=== PATIENT | female | born 1970 | race Asian ===

== ENCOUNTER 2016-06-23 06:55 | Inpatient (IN) | payer OTHER ==
[2016-06-21 15:46] LABS: BASOPHILS % (AUTO) 0.8 % (0.0-2.0); EOSINOPHILS # (AUTO) 0.1 K/uL (0.0-0.4); EOSINOPHILS % (AUTO) 2.1 % (0.0-4.0); HEMOGLOBIN 13.2 g/dL (12.0-16.0); LYMPHOCYTES # (AUTO) 1.3 K/uL (1.0-5.5); LYMPHOCYTES % (AUTO) 26.5 % (20.5-51.5); MEAN CORPUSCULAR HEMOGLOBIN 30 pg (27-31); MEAN CORPUSCULAR HGB CONC 33 % (32-36); MEAN CORPUSCULAR VOLUME 91 fL (79.0-98.0); MONOCYTES # (AUTO) 0.2 K/uL (0.0-1.0); MONOCYTES % (AUTO) 4.8 % (1.7-9.3); NEUTROPHILS # (AUTO) 3.4 K/uL (1.8-7.7); NEUTROPHILS % (AUTO) 65.8 % (40.0-70.0); PLATELET COUNT (AUTO) 259 K/uL (130-430); RED CELL DISTRIBUTION WIDTH 12.4 % (9.0-15.0)
[2016-06-21 15:53] LABS: BILIRUBIN,URINE NEGATIVE (NEGATIVE); BLOOD, URINE NEGATIVE (NEGATIVE); CLARITY/URINE CLEAR (CLEAR); COLOR,URINE YELLOW (YELLOW); GLUCOSE,URINE NEGATIVE (NEGATIVE); KETONES,URINE NEGATIVE (NEGATIVE); LEUKOCYTE ESTERASE ,URINE NEGATIVE (NEGATIVE); NITRITE, URINE NEGATIVE (NEGATIVE); PROTEIN URINE NEGATIVE (NEGATIVE); UROBILINOGEN,URINE 0.2 (0.2-1.0)
[~2016-06-23] VITALS: Ht 162.6 cm; Wt 64.0 kg
--- NOTE | 2016-06-23 02:34 | NUR ---
SAT AND DANGLE FEET PT SAT AND DANGLE LEGS IN THE BED WHILE BREATHING IS ORDERED. TOLERATED WELL, NO S/S OF ANY PAIN OR DISTRESS NOTED. WENT BACK TO LAY DOWN. WILL CONT TO MONITOR. Addendum: 06/24/16 at 0537 by Erlin Patel RN INCORRECT TIME PLS DISREGARD NOTES
[2016-06-23] MEDS ORDERED: NORE0.3513 PO (07:29)
[2016-06-23] MEDS ORDERED: METOCLOPRAMIDE HCL 10 MG/2 ML VIAL IVP ONE (08:57)
[2016-06-23] MEDS ORDERED: GLYCOPYRROLATE 0.2 MG/ML VIAL IJ ONE (08:57)
[2016-06-23] MEDS ORDERED: MORPHINE SULFATE 10 MG/ML VIAL IVP ONE (08:57)
[2016-06-23] MEDS ORDERED: LR 1,000 ML IV.SOLN IV ONE (08:57)
[2016-06-23] MEDS ORDERED: fentaNYL CITRATE/PF 100 MCG/2 ML AMP IVP ONE (08:57)
[2016-06-23] MEDS ORDERED: KETOROLAC TROMETHAMINE 30 MG VIAL IVP ONE (08:57)
[2016-06-23] MEDS ORDERED: DEXAMETHASONE SOD PHOSPHATE 4 MG/ML VIAL IVP ONE (08:57)
[2016-06-23] MEDS ORDERED: ROCURONIUM BROMIDE 10 MG/ML (ZEMURON) IV ONE (08:57)
[2016-06-23] MEDS ORDERED: PROPOFOL 200MG/ 20ML VIAL (DIPRIVAN) IV ONE (08:57)
[2016-06-23] MEDS ORDERED: SEVOFLURANE 15 MIN GAS INH ONE (08:57)
[2016-06-23] MEDS ORDERED: CEFAZOLIN 1 GM IVPB PREMIX 50 ML IV ONE (08:57)
[2016-06-23] MEDS ORDERED: MIDAZOLAM HCL 5 MG/5 ML VIAL IVP ONE (08:57)
[2016-06-23] MEDS ORDERED: LR 1,000 ML IV ONE (09:47)
[2016-06-23] MEDS ORDERED: DIPHENHYDRAMINE INJ 50 MG/ML VIAL IVP PRN (10:00)
[2016-06-23] MEDS ORDERED: NALBUPHINE HCL 10 MG/ML AMP IVP PRN (10:00)
[2016-06-23] MEDS ORDERED: NALOXONE HCL 0.4 MG/ML AMP (NARCAN) IVP PRN (10:00)
[2016-06-23] MEDS ORDERED: ONDANSETRON HCL 4 MG/2 ML VIAL IVP PRN ×3 (10:00→11:30)
[2016-06-23] MEDS ORDERED: fentaNYL CITRATE/PF 100 MCG/2 ML AMP IVP PRN (10:00)
[2016-06-23] MEDS ORDERED: ePHEDrine sulfate 50 MG/ML VIAL IVP PRN (10:00)
[2016-06-23] MEDS ORDERED: MORPHINE 4 MG/ML INJ. SYRINGE IVP PRN (11:30)
[2016-06-23] MEDS ORDERED: DOCUSATE SODIUM 100 MG CAPSULE PO PRN (11:30)
[2016-06-23] MEDS ORDERED: HYDROmorphone 2 MG/ML VIAL IVP PRN (11:30)
[2016-06-23] MEDS ORDERED: BISACODYL 10 MG/SUPPOSITORY RC PRN (11:30)
[2016-06-23] MEDS ORDERED: KETOROLAC TROMETHAMINE 30 MG VIAL IVP SCH (11:30)
[2016-06-23] MEDS ORDERED: SIMETHICONE 80 MG TAB.CHEW PO PRN (11:30)
[2016-06-23] MEDS ORDERED: SENNOSIDES/DOCUSATE SODIUM 1 TAB TABLET(SENOKOT-S) PO PRN (11:30)
[2016-06-23] MEDS: fentaNYL CITRATE/PF 100 MCG/2 ML AMP ONE ×3 (11:36→12:20)
[2016-06-23 12:30] VITALS: BP 122/77; PULSE 60; RESP 14; TEMP 97.2; O2SAT 94
--- NOTE | 2016-06-23 12:30 | NUR ---
ADMISSION NOTE Received patient from [facility] via michael, received report from RN. Patient admitted with diagnosis of Leimyoma of uterus/abnormal uterine bleeding S/P YOKO/BS. Patient oriented to hospital routine, call light, and safety-patient verbalized understanding.
--- NOTE | 2016-06-23 12:35 | NUR ---
initial assessment: pt on bed with I.V. access patent. Dressing intact and no active bleeding with Abdominal binder and ice packs. duque cath. SCD in placed.
[2016-06-23 13:25] VITALS: BP 127/75; PULSE 63
--- NOTE | 2016-06-23 13:26 | NUR ---
rounds: pt sleeping. no distress noted.
--- NOTE | 2016-06-23 14:22 | NUR ---
ROUNDS: V/S WNL. Pt sleeping. no distress noted.
--- NOTE | 2016-06-23 16:41 | NUR ---
rounds: pt awake, alert and oriented. educate on incentive spirometer and able to do it at 1000l. ice chips provided. remains npo.
[2016-06-23 16:43] VITALS: BP 123/74; PULSE 68; RESP 16; TEMP 97.2; O2SAT 100
--- NOTE | 2016-06-23 17:19 | NUR ---
rounds: pt on bed watching t.v. no distress noted. incentive spirometer level increased to 1500.
[2016-06-23 19:10] VITALS: BP 137/69; PULSE 75; RESP 18; TEMP 98.4; O2SAT 96
--- NOTE | 2016-06-23 19:10 | NUR ---
INITIAL ROUNDS RECVD PT IN BED, A/A/O X4. NO S/S OF ANY PAIN. IV NOTED TO L HAND G 20, NO INFILTRATE WITH GOOD BLOOD RETURN. NOTED SX SITE WITH STERRI STRIP TO LOWER ABD, ABD BINDER IS ON. ALL EXTREMITIES ARE ACTIVE, AMBULATORY WITH ASSIST. DISCUSSED PLAN OF CARE WITH PT AND VERBALIZED UNDERSTANDING. BED IN LOW POSITION WITH CALL LIGHT WITHIN REACH. WILL CONT TO MONITOR
[2016-06-23] MEDS: LR 1,000 ML IV SCH ×2 (19:17→21:44)
[2016-06-23] MEDS: KETOROLAC TROMETHAMINE 30 MG VIAL IVP SCH (19:41)
--- NOTE | 2016-06-23 19:46 | NUR ---
closing notes: pt on bed resting. stable. needs attended. report given to operation shift supervisor.
[2016-06-23] MEDS ORDERED: TEMAZEPAM 15 MG CAPSULE PO PRN (21:00)
--- NOTE | 2016-06-23 21:20 | NUR ---
ROUNDS PT IS AWAKE WATCHING TV @ THIS TIME. NO S/S OF ANY PAIN OR DISTRESS NOTED. BED IN LOW POSITION WITH CALL LIGHT WITHIN REACH. WILL CONT TO MONITOR.
--- NOTE | 2016-06-23 23:10 | NUR ---
ROUNDS PT IS RESTING COMFORTABLY @ THIS TIME. NO S/S OF ANY PAIN OR DISTRESS NOTED. BED IN LOW POSITION WITH CALL LIGHT WITHIN REACH. WILL CONT TO MONITOR.
--- NOTE | 2016-06-23 23:50 | NUR ---
SAT AND DANGLE FEET PT SAT AND DANGLE LEGS IN THE BED WHILE BREATHING IS ORDERED. TOLERATED WELL, NO S/S OF ANY PAIN OR DISTRESS NOTED. WENT BACK TO LAY DOWN. WILL CONT TO MONITOR.
[2016-06-24] MEDS: KETOROLAC TROMETHAMINE 30 MG VIAL IVP SCH ×5 (00:11→23:31)
[2016-06-24 00:13] VITALS: BP 101/52; PULSE 69; RESP 18; TEMP 99.5; O2SAT 96
--- NOTE | 2016-06-24 01:10 | NUR ---
ROUNDS PT IS RESTING @ THIS TIME. NO S/S OF PAIN AND NO SOB NOTED. BED IN LOW POSITION WITH CALL LIGHT WITHIN REACH. WILL CONT TO MONITOR.
--- NOTE | 2016-06-24 03:10 | NUR ---
ROUNDS PT IS RESTING COMFORTABLY @ THIS TIME. NO S/S OF ANY PAIN. BED IN LOW POSITION WITH CALL LIGHT WITHIN REACH. WILL CONT TO MONITOR.
[2016-06-24] MEDS: LR 1,000 ML IV SCH ×2 (03:41→18:30)
[2016-06-24 04:00] VITALS: BP 100/54; PULSE 73; RESP 18; TEMP 97.4; O2SAT 93
--- NOTE | 2016-06-24 05:00 | NUR ---
AMBULATE PT AMBULATED IN THE HALLWAY WITH ASSISTANCE WITH THIS NURSE. TOLERATED WELL, NO S/S OF ANY PAIN OR DISTRESS NOTED. WILL CONT TO MONITOR.
[2016-06-24] MEDS: IBUPROFEN 600 MG TABLET PO SCH ×4 (05:15→23:31)
--- NOTE | 2016-06-24 05:20 | NUR ---
D/C F/C D/C F/C ORDERED. WILL MONITOR FOR REG URINATION WITHIN 6 HOURS.
[2016-06-24] MEDS ORDERED: OXYCODONE/ACETAMINOPHEN 5-325 TABLET PO PRN (06:00)
[2016-06-24 06:42] LABS: BASOPHILS % (AUTO) 0.3 % (0.0-2.0); EOSINOPHILS % (AUTO) 0.2 % (0.0-4.0); HEMOGLOBIN 11.8 g/dL (12.0-16.0); LYMPHOCYTES # (AUTO) 1.2 K/uL (1.0-5.5); LYMPHOCYTES % (AUTO) 12.3 % (20.5-51.5); MEAN CORPUSCULAR HEMOGLOBIN 31 pg (27-31); MEAN CORPUSCULAR HGB CONC 34 % (32-36); MEAN CORPUSCULAR VOLUME 92 fL (79.0-98.0); MONOCYTES # (AUTO) 0.4 K/uL (0.0-1.0); MONOCYTES % (AUTO) 4.2 % (1.7-9.3); NEUTROPHILS # (AUTO) 7.8 K/uL (1.8-7.7); PLATELET COUNT (AUTO) 201 K/uL (130-430); RED BLOOD CELL COUNT(AUTO) 3.83 MIL/uL (4.2-6.2); RED CELL DISTRIBUTION WIDTH 12.3 % (9.0-15.0); WHITE BLOOD COUNT (AUTO) 9.4 K/uL (4.8-10.8)
--- NOTE | 2016-06-24 06:52 | NUR ---
FINAL ROUNDS PT IS RESTING @ THIS TIME. NO S/S OF PAIN OR ANY DISTRESS. V/S ARE WNL. ALL NEEDS MET AND ANTICIPATED BY NOC NURSES. BED IN LOW POSITION WITH SIDE RAILS UP X 2 FOR SAFETY. CALL LIGHT WITHIN REACH; ENDORSED.
--- NOTE | 2016-06-24 07:30 | NUR ---
rn notes: patient aaox 4. afebrile. vss stable. lungs bilaterally clear. abdomen soft and non distended. but still hypoactive. still with abdomen dressing with abdominal binder. dry and intact. no drainage. able to void in the bathroom. able to ambulate with the mom. has iv access on the left forearm. #20. Lr at 125cc/hr infusing. call lights within reach. safety measures maintained. informed to call for assistance. bed in low position.
[2016-06-24 08:27] VITALS: BP 111/61; PULSE 85; RESP 14; TEMP 97.8; O2SAT 98
--- NOTE | 2016-06-24 08:55 | NUR ---
percocet 1 tab po given. made comfortable. assists on adls.
--- NOTE | 2016-06-24 09:07 | NUR ---
Nutrition Update Fady Scale 17 noted. Pt admitted for leiomyoma of uterus, unspecified abnormal uterine. Diet: regular BMI: 24.2 kg/m2 RD to follow per nutrition care standards.
--- NOTE | 2016-06-24 10:00 | NUR ---
no due medication given at this time. stable.
[2016-06-24 10:23] VITALS: BP 111/61; PULSE 85; RESP 14; TEMP 97.8; O2SAT 98
[2016-06-24 12:26] VITALS: BP 116/64; PULSE 79; RESP 16; TEMP 98; O2SAT 99
--- NOTE | 2016-06-24 14:00 | NUR ---
patient is asleep at this time. call lights within reach.
--- NOTE | 2016-06-24 15:00 | NUR ---
assists on adls. no pain nor distress noted.
--- NOTE | 2016-06-24 16:02 | NUR ---
lactated ringer hanged at this time. motrin 600mg po given at this time.made comfortable. feels nauseous but refused zofran iv
[2016-06-24 16:29] VITALS: BP 120/70; PULSE 80; RESP 17; TEMP 97.8; O2SAT 99
--- NOTE | 2016-06-24 17:50 | NUR ---
patient is stable no complained made so far.
--- NOTE | 2016-06-24 18:23 | NUR ---
eating dinner at this time. stable.
--- NOTE | 2016-06-24 19:31 | NUR ---
sbar report given to incoming nurse Lachelle REZA
--- NOTE | 2016-06-24 20:05 | NUR ---
Opening Note Report received form Megan day shift RN. Patient is in stable condition currently resting in bed. IV is on the LFA 20g running LR@125ml/hr. Abdominal incision is dry and intact. Patient is using IS when awake. Bed is in low position. Call light is within reach. Instructed patient to use it whenever in need of assistance. Will continue to monitor.
--- NOTE | 2016-06-24 22:00 | NUR ---
Rounds patient is in stable condition currently resting in bed. Call light is within reach. Instructed patient to use it whenever in need of assistance.
--- NOTE | 2016-06-25 00:15 | NUR ---
Rounds Patient is currently resting in bed. Medicated with standing dose of Toradol and Motrin. Will reassess.
[2016-06-25 00:40] VITALS: BP 97/67; PULSE 90; RESP 15; TEMP 99.6; O2SAT 96
[2016-06-25] MEDS: LR 1,000 ML IV SCH (01:29)
--- NOTE | 2016-06-25 02:15 | NUR ---
Rounds Patient is resting in bed. Call light is within reach.
[2016-06-25 03:50] VITALS: BP 111/64; PULSE 79; RESP 17; TEMP 98; O2SAT 96
--- NOTE | 2016-06-25 04:17 | NUR ---
Rounds Patient is currently sleeping in bed. Call light is within reach.
[2016-06-25] MEDS: IBUPROFEN 600 MG TABLET PO SCH (05:12)
[2016-06-25] MEDS: KETOROLAC TROMETHAMINE 30 MG VIAL IVP SCH (05:12)
--- NOTE | 2016-06-25 06:53 | NUR ---
Closing Note Patient is in stable condition. No complaints throughout the shift. Call light is within reach. IV is on the left hand running at TKO. Will give report to the oncoming nurse.
--- NOTE | 2016-06-25 07:28 | NUR ---
rn notes: patient is comfortably sleeping. no pain nor distress noted. has dressing of steri strip on it. with old dry blood. no drainage noted. afebrile. vss stable. has iv access on the left forearm #20 lr on 20cc/hr infusing on well. bed in low position. call lights within reach. safety measures maintained.
--- NOTE | 2016-06-25 07:30 | NUR ---
Dr Armstrong came to evaluate the patient.
[2016-06-25 08:34] VITALS: BP 112/59; PULSE 82; RESP 18; TEMP 97.9; O2SAT 98
[2016-06-25 10:13] VITALS: BP 115/72; PULSE 80; RESP 16; TEMP 97; O2SAT 95
--- NOTE | 2016-06-25 10:30 | NUR ---
patient verbalized no pain nor distress noted.
--- NOTE | 2016-06-25 10:30 | NUR ---
transitional care discharge instruction given to the patient/ at the bedside. regarding return follow up with Dr Armstrong in two weeks time. prescribed medication which the patient has, before admission. explained the medication one by one in its side effects, dosages and frequency. and patient understands. post op care of the incisional site on the abdomen.
--- NOTE | 2016-06-25 10:35 | NUR ---
instructed patient to wear the abdominal binder at all times. and no heavy lifting. needs to have light activity only. no driving for 2 two weeks, as per md order.
--- NOTE | 2016-06-25 10:49 | NUR ---
patient left in stable condition. scds id band removed. saline lock removed. at the bedside.
[2016-06-25 15:55] VITALS: BP 120/70; PULSE 86; RESP 16; TEMP 98.6; O2SAT 100
== END 2016-06-25 10:49 | disposition home or self-care (01) | DRG 743 ==
LOC: SMU 06:55
PROVIDERS: ADMIT Obstetrics & Gynecology; ATTEND Obstetrics & Gynecology
PROC: 0UT90ZZ Resection of Uterus, Open Approach (ICD-10-PCS; 2016-06-23)
PROC: 0UT70ZZ Resection of Bilateral Fallopian Tubes, Open Approach (ICD-10-PCS; 2016-06-23)
PROC: 0UTC0ZZ Resection of Cervix, Open Approach (ICD-10-PCS; principal; 2016-06-23 09:00)
DX: D25.9 Leiomyoma of uterus, unspecified (principal); N93.9 Abnormal uterine and vaginal bleeding, unspecified; Z82.49 Family history of ischemic heart disease and other diseases of the circulatory system; Z80.3 Family history of malignant neoplasm of breast
CPT/HCPCS: 36415; 81003; 84703; 85025; 86886; 86900; 86901; 87081; 88307; 94010; J0690; J1100; J1170; J1885; J2250; J2270; J2704; J2765; J3010; J3490; J7120